=== PATIENT | female | born 1990 | race Caucasian/White ===

== ENCOUNTER 2020-06-18 18:33 | Emergency (ER) | payer OTHER ==
[~2020-06-18] VITALS: Ht 165.1 cm; Wt 72.6 kg
[2020-06-18 18:55] VITALS: BP 141/61
--- NOTE | 2020-06-18 20:38 | NUR ---
[employer] AT [employer].
== END 2020-06-18 20:56 ==
LOC: ER 18:34
DX: O26.92 Pregnancy related conditions, unspecified, second trimester (principal); R10.9 Unspecified abdominal pain; O99.512 Diseases of the respiratory system complicating pregnancy, second trimester; J45.909 Unspecified asthma, uncomplicated; Z3A.20 20 weeks gestation of pregnancy